=== PATIENT | female | born 1935 | race Caucasian/White ===

== ENCOUNTER 2021-03-09 20:48 | Emergency (ER) | payer OTHER ==
[~2021-03-09] VITALS: Ht 157.5 cm; Wt 54.4 kg
[2021-03-09 22:02] LABS: BASOPHILS # (AUTO) 0.1 (0.0-0.1); BASOPHILS % 0.6 % (0.0-1.0); EOSINOPHILS # (AUTO) 0.4 (0.0-0.4); EOSINOPHILS % 4.5 % (0.0-6.0); HEMOGLOBIN 10.9 g/dL (12.0-16.0); LYMPHOCYTES # (AUTO) 1.8 (1.0-3.2); LYMPHOCYTES % 21.4 % (18.0-39.1); MEAN CORPUSCULAR HEMOGLOBIN 32.6 pg (28-32); MEAN CORPUSCULAR VOLUME 98.8 fL (81-99); MONOCYTES # (AUTO) 0.8 (0.2-0.8); NEUTROPHILS # (AUTO) 5.2 (2.1-6.9); NEUTROPHILS % 63.3 % (38.7-80.0); PLATELET COUNT 205 x10e3/uL (140-360); RED BLOOD COUNT 3.34 x10e6/uL (3.6-5.1); RED CELL DISTRIBUTION WIDTH 13.3 % (11.7-14.4)
[2021-03-09 22:28] LABS: ALBUMIN 2.8 g/dL (3.5-5.0); ALBUMIN/GLOBULIN RATIO 0.8 (0.8-2.0); ANION GAP 11.9 mmol/L (8-16); CALCIUM 8.7 mg/dL (8.4-10.2); CREATININE, SERUM 0.8 mg/dL (0.57-1.11); POTASSIUM 3.9 mmol/L (3.5-5.1)
[2021-03-09 22:34] LABS: CREATINE KINASE MB 4.1 ng/mL (0-5.0)
[2021-03-10 02:55] VITALS: BP 130/65
== END 2021-03-10 02:30 ==
LOC: ER 20:58
DX: R94.8 Abnormal results of function studies of other organs and systems (principal); W19.XXXA Unspecified fall, initial encounter; Y93.01 Activity, walking, marching and hiking; Y92.89 Other specified places as the place of occurrence of the external cause; F03.90 Unspecified dementia, unspecified severity, without behavioral disturbance, psychotic disturbance, mood disturbance, and anxiety; R94.31 Abnormal electrocardiogram [ECG] [EKG]
CPT/HCPCS: 36415; 70450; 71045; 72125; 72192; 73522; 80053; 82550; 82553; 84484; 85025; 93005; 99283

== ENCOUNTER 2022-06-10 18:04 | Observation (INO) | payer MEDICARE, OTHER ==
[~2022-06-10] VITALS: Ht 157.5 cm; Wt 54.4 kg
[2022-06-10] MEDS ORDERED: SODIUM CHLORIDE FLUSH 10 ML SYR IV PRN (18:30)
[2022-06-10 19:03] LABS: BASOPHILS # (AUTO) 0.1 (0.0-0.1); BASOPHILS % 0.5 % (0.0-1.0); EOSINOPHILS # (AUTO) 0.4 (0.0-0.4); EOSINOPHILS % 4.4 % (0.0-6.0); HEMATOCRIT 38.6 % (34.2-44.1); HEMOGLOBIN 11.7 g/dL (12.0-16.0); LYMPHOCYTES % 19.6 % (18.0-39.1); MEAN CORPUSCULAR HEMOGLOBIN 32.2 pg (28-32); MEAN CORPUSCULAR HGB CONC 30.3 g/dL (31-35); MEAN CORPUSCULAR VOLUME 106.3 fL (81-99); MONOCYTES # (AUTO) 0.9 (0.2-0.8); MONOCYTES % 8.5 % (4.4-11.3); NEUTROPHILS # (AUTO) 6.7 (2.1-6.9); NEUTROPHILS % 66.7 % (38.7-80.0); PLATELET COUNT 260 x10e3/uL (140-360); RED BLOOD COUNT 3.63 x10e6/uL (3.6-5.1)
[2022-06-10 19:07] LABS: CLARITY,URINE CLOUDY (CLEAR); COLOR,URINE YELLOW (YELLOW); INR 1.78; KETONES,URINE NEGATIVE (NEGATIVE); LEUKOCYTE ESTERASE ,URINE 1+ (NEGATIVE); NITRITE,URINE POSITIVE (NEGATIVE); PROTEIN,URINE DIPSTICK NEGATIVE (NEGATIVE); PROTHROMBIN TIME 20.9 seconds (11.9-14.5); URINE UROBILINOGEN 0.2 mg/dL (0.2 - 1)
[2022-06-10 19:08] LABS: PARTIAL THROMBOPLASTIN TIME 27.5 seconds (23.8-35.5)
[2022-06-10 19:15] LABS: AMORPHOUS SEDIMENT,URINE MANY (FEW); BACTERIA,URINE MANY /HPF; EPITHELIAL CELLS,URINE FEW /LPF; WBC,URINE (MAN) >50 /HPF (0-5)
[2022-06-10 19:16] LABS: ALBUMIN 2.9 g/dL (3.5-5.0); ALBUMIN/GLOBULIN RATIO 0.7 (0.8-2.0); CALCIUM 9.1 mg/dL (8.4-10.2); CREATININE, SERUM 0.83 mg/dL (0.57-1.11)
[2022-06-10] MEDS ORDERED: NAMENDA5 MG PO (21:26)
[2022-06-10] MEDS ORDERED: MELATONIN3 MG PO (21:26)
[2022-06-10] MEDS ORDERED: DEPAKOTE ER250 MG PO (21:26)
[2022-06-10] MEDS ORDERED: OMEPRAZOLE40 MG PO (21:26)
[2022-06-10] MEDS ORDERED: TYLENOL325 MG PO (21:26)
[2022-06-10] MEDS ORDERED: VITAMIN D350 MCG PO (21:26)
[2022-06-10] MEDS ORDERED: CITALOPRAM HBR20 MG PO (21:26)
[2022-06-10] MEDS ORDERED: ALTOPREV40 MG PO (21:26)
[2022-06-10] MEDS ORDERED: FOLIC ACID0.4 MG PO (21:26)
[2022-06-10] MEDS ORDERED: B-121000 MCG PO (21:26)
[2022-06-10] MEDS ORDERED: WARFARIN SODIUM5 MG PO ×2 (21:26)
[2022-06-10] MEDS ORDERED: ZESTRIL20 MG PO (21:26)
[2022-06-10] MEDS ORDERED: SEROQUEL25 MG PO (21:26)
[2022-06-10] MEDS ORDERED: FUROSEMIDE40 MG PO (21:26)
[2022-06-10] MEDS ORDERED: ONDANSETRON HCL INJ 2MG/ML 2ML 2 MG/ML VIAL IV PRN (21:45)
[2022-06-11 07:52] LABS: BASOPHILS # (AUTO) 0.1 (0.0-0.1); BASOPHILS % 0.6 % (0.0-1.0); EOSINOPHILS # (AUTO) 0.4 (0.0-0.4); EOSINOPHILS % 5.3 % (0.0-6.0); HEMATOCRIT 35.6 % (34.2-44.1); HEMOGLOBIN 10.9 g/dL (12.0-16.0); LYMPHOCYTES # (AUTO) 1.9 (1.0-3.2); LYMPHOCYTES % 24.1 % (18.0-39.1); MEAN CORPUSCULAR HEMOGLOBIN 32.3 pg (28-32); MEAN CORPUSCULAR HGB CONC 30.6 g/dL (31-35); MEAN CORPUSCULAR VOLUME 105.6 fL (81-99); MONOCYTES # (AUTO) 0.6 (0.2-0.8); MONOCYTES % 7.6 % (4.4-11.3); NEUTROPHILS # (AUTO) 4.8 (2.1-6.9); NEUTROPHILS % 62.3 % (38.7-80.0); PLATELET COUNT 240 x10e3/uL (140-360); RED BLOOD COUNT 3.37 x10e6/uL (3.6-5.1); RED CELL DISTRIBUTION WIDTH 13.1 % (11.7-14.4)
[2022-06-11 08:09] LABS: ALBUMIN 2.7 g/dL (3.5-5.0); ALBUMIN/GLOBULIN RATIO 0.8 (0.8-2.0); ANION GAP 10.5 mmol/L (8-16); CALCIUM 9.1 mg/dL (8.4-10.2); CREATININE, SERUM 0.74 mg/dL (0.57-1.11); POTASSIUM 4.5 mmol/L (3.5-5.1)
[2022-06-11] MEDS ORDERED: ACETAMINOPHEN 325 MG TAB PO PRN (09:15)
[2022-06-11 09:57] LABS: THYROID STIMULATING HORMONE 2.199 uIU/mL (0.350-4.940)
[2022-06-11 12:14] VITALS: BP 144/83
[2022-06-11] MEDS ORDERED: SODIUM CHLORIDE 0.9% 100 ML ONE (12:36)
[2022-06-11 14:35] VITALS: BP 144/83
[2022-06-11 16:25] VITALS: BP 146/64
[2022-06-11] MEDS: DIVALPROEX SODIUM 250 MG TAB...DR PO SCH (17:27)
[2022-06-11] MEDS: QUETIAPINE FUMARATE 25 MG TAB PO SCH (17:27)
[2022-06-11 20:00] VITALS: BP 140/61
[2022-06-11 21:00] VITALS: BP 140/61
[2022-06-11] MEDS ORDERED: MELATONIN 3 MG TAB PO SCH (21:00)
[2022-06-11] MEDS ORDERED: MAGNESIUM HYDROXIDE 30 ML UDC PO PRN (23:45)
[2022-06-11] MEDS ORDERED: MAGNESIUM HYDROXIDE 30 ML UDC PO ONE (23:45)
[2022-06-12] VITALS: BP 123/53
[2022-06-12] MEDS: SENNA-S TABLET PO SCH ×2 (00:08→09:09)
[2022-06-12 04:00] VITALS: BP 141/57
[2022-06-12] MEDS ORDERED: PANTOPRAZOLE SOD 40 MG TABEC PO SCH (07:30)
[2022-06-12 07:35] VITALS: BP 122/69
[2022-06-12] MEDS ORDERED: CITALOPRAM HYDROBROMIDE 20 MG TAB PO SCH (09:00)
[2022-06-12] MEDS ORDERED: MEMANTINE 10 MG TAB PO SCH (09:00)
[2022-06-12] MEDS: DIVALPROEX SODIUM 250 MG TAB...DR PO SCH (09:09)
[2022-06-12] MEDS: QUETIAPINE FUMARATE 25 MG TAB PO SCH (09:09)
[2022-06-12] MEDS ORDERED: ONDANSETRON HCL 4 MG ORAL DISINTEGRATING TAB SL PRN (10:45)
[2022-06-12 11:25] VITALS: BP 136/72
[2022-06-12 15:12] VITALS: BP 127/68
== END 2022-06-12 17:19 ==
LOC: ER 18:15 → ERHOLD 21:42 → INTOOBSV 21:42 → MED/SURG3 06-11 09:53
PROVIDERS: ADMIT Internal Medicine; ATTEND Internal Medicine
DX: S01.81XA Laceration without foreign body of other part of head, initial encounter (principal); F03.90 Unspecified dementia, unspecified severity, without behavioral disturbance, psychotic disturbance, mood disturbance, and anxiety; F41.9 Anxiety disorder, unspecified; F31.9 Bipolar disorder, unspecified; F20.9 Schizophrenia, unspecified; Z85.3 Personal history of malignant neoplasm of breast; Z86.718 Personal history of other venous thrombosis and embolism; Z79.01 Long term (current) use of anticoagulants; W19.XXXA Unspecified fall, initial encounter; Y92.129 Unspecified place in nursing home as the place of occurrence of the external cause; Z88.5 Allergy status to narcotic agent; R32 Unspecified urinary incontinence; G30.9 Alzheimer's disease, unspecified; F02.80 Dementia in other diseases classified elsewhere, unspecified severity, without behavioral disturbance, psychotic disturbance, mood disturbance, and anxiety; F05 Delirium due to known physiological condition; M10.9 Gout, unspecified; S09.90XA Unspecified injury of head, initial encounter; R79.1 Abnormal coagulation profile
CPT/HCPCS: 0223U; 36415 ×2; 70450 ×2; 70486; 71045; 72125; 73522; 73700 ×2; 80053 ×2; 81001; 83735; 84443; 84484; 85025 ×2; 85610; 85730; 93005 ×2; 94760; 97162; 99285; G0378 ×3; J0692 ×2; J0696; J7050; S0164